=== PATIENT | female | born 1945 | race Two or more races ===

== ENCOUNTER → 2022-12-23 | Day surgery (SDC) | payer MEDICARE ==
[~2022-12-23] MED LIST: ALENDRONATE SODI5 MG; ATENOLOL50 MG PO; DIOVAN80 MG PO; FAMOTIDINE20 MG PO; FENTANYL CITRATE/PF 100MCG/2 ML INJ ONE; FLECTOR1 EACH TD; LACTATED RINGER'S 1,000 ML ONE; LIDOCAINE HCL50 ML TOP; MIDAZOLAM HCL 2 MG/2 ML VIAL ONE; NIFEDIPINE10 MG PO; ONDANSETRON HCL INJ 2MG/ML 2ML 2 MG/ML VIAL ONE; PREDNISONE5 MG PO; PROPARACAINE HCL 0.5% OP SOLN 15 ML BTL ONE; SEMGLEE (Y100 UNIT/2; SIMVASTATIN20 MG PO; TRADJENTA5 MG
[2022-12-23 14:00] VITALS: BP 123/57; PULSE 68; RESP 14; O2SAT 95
== END | disposition home or self-care (01) ==
LOC: OR 10:55
PROVIDERS: ATTEND Ophthalmology
DX: H25.12 Age-related nuclear cataract, left eye (principal); E11.9 Type 2 diabetes mellitus without complications; I10 Essential (primary) hypertension; E78.5 Hyperlipidemia, unspecified; G89.29 Other chronic pain; Z79.4 Long term (current) use of insulin; Z79.84 Long term (current) use of oral hypoglycemic drugs; Z79.82 Long term (current) use of aspirin; Z79.899 Other long term (current) drug therapy
CPT/HCPCS: 36415; 66984; 82948; J2250; J2405; J3010; J7121; V2632